=== PATIENT | female | born 1950 | race Caucasian/White ===

== ENCOUNTER 2020-12-06 08:43 | Day surgery (SDC) | payer BC, MEDICARE ==
[~2020-12-06 08:43] MED LIST: Bupivacaine 0.5% 50 ML MDV ONE; Lidocaine 1% with EPINEPHrine 1:100,000 50 ML MDV ONE
[2020-12-06] MEDS ORDERED: Acetaminophen 500 MG Tab PO ONE (09:15)
[2020-12-06] MEDS ORDERED: Dextrose 5%-Lactated Ringers 1,000 ML IV SCH (09:30)
[2020-12-06] MEDS ORDERED: Ampicillin/Sulbactam Na 3 GM in Sodium Chloride 0.9% 100 ML IV ONE (10:00)
[2020-12-06] MEDS ORDERED: Dexamethasone 4 MG/ML SDV ONE (12:34)
[2020-12-06] MEDS ORDERED: Propofol 200 MG/20 ML SDV ONE (12:34)
[2020-12-06] MEDS ORDERED: fentaNYL 250 MCG/5 ML SDV ONE (12:34)
[2020-12-06] MEDS ORDERED: Ondansetron 4 MG/2 ML SDV ONE (12:34)
[2020-12-06] MEDS ORDERED: Neostigmine Methylsulfate 1 MG/ML 5 ML Syringe ONE (12:34)
[2020-12-06] MEDS ORDERED: Glycopyrrolate 0.2 MG/ML 5 ML MDV ONE (12:35)
[2020-12-06] MEDS ORDERED: Rocuronium 50 MG/5 ML Vial ONE (12:35)
[2020-12-06] MEDS ORDERED: Bupivacaine 0.5%/EPINEPHrine 1:200,000 50 ML MDV ONE (13:15)
[2020-12-06] MEDS ORDERED: Bacitracin Oint 1 GM U/D Packet ONE (13:21)
[2020-12-06] MEDS ORDERED: Sugammadex Sodium 200 MG/2 ML VIAL ONE (13:40)
--- NOTE | 2020-12-07 20:39 | OR ---
DATE OF PROCEDURE: 12/06/2020 SURGEON: Kapil Bahena MD PREOPERATIVE DIAGNOSIS: Cystic lesion, right perianal area. POSTOPERATIVE DIAGNOSIS: Cystic lesion, right perianal area. OPERATIVE PROCEDURE: Excision of cystic lesion in the right perianal area with layered closure ([id number]). ANESTHESIA: General. INDICATION FOR PROCEDURE: This is a 70-year-old female presenting with a cystic lesion in her right perianal area. This has been quite tender, but does not show overt signs of being related to the anal canal or lower rectum. Plan will be to proceed with excision of this with a general anesthetic in the event that the operative findings are such that it does communicate and more significant operation needs to be done other than just excision of the lesion. Potential risks including bleeding, infection, possible need to do procedures such as fistulotomy, possible recurrence of lesion over time were all reviewed and the patient wishes to proceed. DETAILS OF PROCEDURE: The patient was taken to the operating room and placed in a left lateral decubitus position. The right perianal area was then prepped and draped and elliptical incision made and carried down through the skin and subcutaneous tissue. The lesion was then removed with a layer of subcutaneous fat around it, which clearly was not involved in any inflammation, i.e., this did not have any connection to the anal or rectal areas. The deeper soft tissue was reapproximated with some 4-0 and 5-0 Vicryl stitch and the skin with a 5-0 Prolene stitch. The lesion plus margin length was 1.7 cm and incision length 4.2 cm. Bacitracin was applied and she was taken to the recovery room in satisfactory condition. Kapil Bahena MD /[id number]
== END 2020-12-06 14:56 | disposition home or self-care (01) ==
LOC: JP.SDS 08:43
PROVIDERS: ATTEND Surgery
DX: L72.0 Epidermal cyst (principal); I12.9 Hypertensive chronic kidney disease with stage 1 through stage 4 chronic kidney disease, or unspecified chronic kidney disease; K21.9 Gastro-esophageal reflux disease without esophagitis; I10 Essential (primary) hypertension; E78.1 Pure hyperglyceridemia; N18.31 Chronic kidney disease, stage 3a; Z88.2 Allergy status to sulfonamides; Z79.899 Other long term (current) drug therapy; Z98.890 Other specified postprocedural states
CPT/HCPCS: A9270-GY; J0295; J1100; J2405; J2704; J2710; J3010; J3490; J7121

== ENCOUNTER 2020-12-15 08:57 | Emergency (ER) | payer MEDICARE ==
[2020-12-15] MEDS ORDERED: Bacitracin Oint 1 GM U/D Packet TOP ONE (09:58)
--- NOTE | 2020-12-15 09:58 | EDM.PDOC ---
ED HPI GENERAL MEDICAL PROBLEM - General Chief Complaint: General Stated Complaint: SURGICAL AREA OPENING Time Seen by Provider: 12/15/20 09:45 Source of Information: Reports: Patient, Old Records, RN History Limitations: Reports: No Limitations - History of Present Illness INITIAL COMMENTS - FREE TEXT/NARRATIVE: 70 yo female had a cyst removed about a week ago in surgery by Dr. Bahena in the perirectal area. A layered closure was utilized. Yesterday she returned to Dr. Bahena's office and his nurse removed the outer layer of sutures. Today Ms. Magallon noticed that her wound had opened up and when she called to Dr. Bahena's office she was told to come to the ER for evaluation. Onset: Today, Sudden Onset Date: 12/15/20 Duration: Hour(s):, Constant Location: Reports: Pelvis Quality: Reports: Burning Severity: Mild Improves with: Reports: None Worsens with: Reports: Other (taking big steps when she walks) Context: Reports: Other (See HPI) Associated Symptoms: Reports: No Other Symptoms Treatments APIARIST: Reports: Acetaminophen - Related Data Allergies Allergy/AdvReac Type Severity Reaction Status Date / Time sulfadiazine Allergy Itching Verified 12/15/20 09:18 Home Meds: Home Meds Cholecalciferol (Vitamin D3) [Vitamin D3] 1,000 unit PO DAILY 11/30/20 [History] Cyanocobalamin (Vitamin B-12) [B-12] 2,500 mcg SL DAILY 11/30/20 [History] Fluticasone Propionate [Flonase] 1 spray NASBOTH DAILY PRN 11/30/20 [History] L.acidoph,Paracasei, B.lactis [Probiotic] 1 cap PO DAILY 11/30/20 [History] Lidocaine [Lidocaine Pain Relief] 1 each TP DAILY PRN 11/30/20 [History] Omeprazole 20 mg PO DAILY 11/30/20 [History] gemfibroziL [Lopid] 600 mg PO DAILY 11/30/20 [History] lisinopriL [Lisinopril] 15 mg PO DAILY 11/30/20 [History] Past Medical History HEENT History: Reports: Allergic Rhinitis, Cataract, Sinusitis Cardiovascular History: Reports: Hypertension Respiratory History: Reports: SOB Gastrointestinal History: Reports: Chronic Constipation, Chronic Diarrhea, Colon Polyp, GERD, Irritable Bowel Syndrome Musculoskeletal History: Reports: Arthritis, Fracture, Other (See Below) Other Musculoskeletal History: rotator cuff tear left shoulder with bone spurs Dermatologic History: Reports: Other (See Below) Other Dermatologic History: rash on right upper back, been there for 20 years - Infectious Disease History Infectious Disease History: Reports: Chicken Pox, Measles, Mumps - Past Surgical History Head Surgeries/Procedures: Reports: None HEENT Surgical History: Reports: None Cardiovascular Surgical History: Reports: None Respiratory Surgical History: Reports: None GI Surgical History: Reports: Colonoscopy Musculoskeletal Surgical History: Reports: None Dermatological Surgical History: Reports: None Social & Family History - Family History Family Medical History: No Pertinent Family History - Tobacco Use Tobacco Use Status *Q: Never Tobacco User Second Hand Smoke Exposure: No - Caffeine Use Caffeine Use: Reports: Tea - Recreational Drug Use Recreational Drug Use: No ED ROS GENERAL - Review of Systems Review Of Systems: See Below Constitutional: Reports: No Symptoms. Denies: Fever, Chills Skin: Reports: Wound (surgical in the perirectal area). Denies: Erythema Neurological: Reports: No Symptoms ED EXAM, GENERAL - Physical Exam Exam: See Below Exam Limited By: No Limitations General Appearance: Alert, WD/WN, No Apparent Distress Extremities: Normal Inspection Neurological: Alert, Oriented, CN II-XII Intact, Normal Cognition, No Motor/S ensory Deficits Psychiatric: Normal Affect, Normal Mood Skin Exam: Warm, Dry, Normal Color, No Rash, Wound/Incision (open, clean surgical wound in the perirectal area. No drainage. ) Course - Vital Signs Last Recorded V/S: Last Vital Signs Temp 36.3 C 12/15/20 09:13 Pulse 67 12/15/20 09:13 Resp 16 12/15/20 09:13 BP 144/65 H 12/15/20 09:13 Pulse Ox 99 12/15/20 09:13 Departure - Departure Time of Disposition: 10:02 Disposition: Home, Self-Care 01 Condition: Good Clinical Impression: Encounter for wound re-check - Discharge Information *PRESCRIPTION DRUG MONITORING PROGRAM REVIEWED*: Not Applicable *COPY OF PRESCRIPTION DRUG MONITORING REPORT IN PATIENT FERNANDA: Not Applicable Referrals: Kena Cho PA [Primary Care Provider] - Additional Instructions: Continue acetaminophen up to 1000 mg every 6 hrs as needed for pain relief. Put Bacitracin ointment on and in wound at least twice a day and keep gauze over the area to protect your clothing. You may need to rinse area with warm water in the shower to keep it clean. Recheck for increasing redness or purulent drainage. Your surgical wound should heal from the bottom up with this approach. Sepsis Event Note (ED) - Focused Exam Vital Signs: Vital Signs Temp Pulse Resp BP Pulse Ox 12/15/20 09:13 36.3 C 67 16 144/65 H 99
== END 2020-12-15 10:30 | disposition home or self-care (01) ==
LOC: JP.ED 08:57
DX: Z48.01 Encounter for change or removal of surgical wound dressing (principal); I10 Essential (primary) hypertension; Z79.899 Other long term (current) drug therapy; Z88.8 Allergy status to other drugs, medicaments and biological substances
CPT/HCPCS: 99282

== ENCOUNTER 2021-08-15 09:08 | Emergency (ER) | payer MEDICARE | END 2021-08-15 12:33 | disposition home or self-care (01) | LOC: JP.ED 09:08 | DX: S83.92XA Sprain of unspecified site of left knee, initial encounter (principal); S93.402A Sprain of unspecified ligament of left ankle, initial encounter; I10 Essential (primary) hypertension; K21.9 Gastro-esophageal reflux disease without esophagitis; Z79.899 Other long term (current) drug therapy; Z88.2 Allergy status to sulfonamides; W19.XXXA Unspecified fall, initial encounter | CPT/HCPCS: 73562-26-LT; 73562-LT; 73610-26-LT; 73610-LT; 99281; 99283 ==